=== PATIENT | female | born 1950 | race Caucasian/White ===

== ENCOUNTER 2018-10-02 13:45 | Outpatient (RCR) | payer OTHER, SELFPAY ==
--- NOTE | 2018-09-08 16:00 | PT.OIE ---
Current Diagnoses Complete uterovaginal prolapse (09/08/18) Provider Visit Care Team Role Provider Type Zach Grijalva MD Attending Provider Non-Staff Primary Care Provider Specialty: LAMINATOR PR[employer]ED CIRCUIT [employer]ARDS Address: [address] [place] [address], [place], [address] Email: Physical Therapy Initial Evaluation PT-OP-A Visit Information Start: 09/08/18 13:02 Freq: Status: Active Protocol: Document 09/08/18 14:30 AMB (Rec: 09/08/18 16:04 AMB [email or web address]) Out-Patient Physical Therapy Visit Information Visit Information Visit Type Initial Evaluation Visit Start Time 14:30 Visit Stop Time 15:15 Total Visit Minutes 45 Visit Number 1 Evaluation Information Evaluation Date 09/08/18 PT-OP-B Current Condition Start: 09/08/18 13:02 Freq: Status: Active Protocol: Document 09/08/18 14:30 AMB (Rec: 09/11/18 07:49 AMB [email or web address]) Current Condition History of Current Condition Onset Date June 2018 Current Complaints urinary leaks and prolapse History of Current Condition The patient notes she is wearing pads at night, because she will leak when walking to the bathroom about 2x/night. Denies leaking during the day. June noticed prolapse ( she pushes it back in while in the shower), leaking started around that same time. Does admit to chronic cough, not currently sexually active due to being a . Had one child 47 years ago vaginal delivery with episiotomy without leaking, menopause ended at least 10 years ago. Pt works in the [employer]. Prior Treatments and Tests Discussed treatments with MD. Not interested in pessary. 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 PT-OP-C Subjective Start: 09/08/18 13:02 Freq: Status: Active Protocol: Document 09/08/18 14:30 AMB (Rec: 09/08/18 14:47 AMB [email or web address]) Patient Questionnaires Pelvic Pain and Urgency/Frequency Patient Symptom Scale Pelvic Pain Score 5 PT-OP-I Pelvic Floor Start: 09/08/18 13:02 Freq: Status: Active Protocol: Document 09/08/18 14:30 AMB (Rec: 09/11/18 08:07 AMB [email or web address]) Pelvic Floor Assessment Urine Pelvic Floor Surgery No Urinary Symptoms Prolapse Falling Out Feeling/Heavy Leakage Size Medium Leakage Cause Urge Leaks Per Day 2 Nocturia 2 Urine Pad Type Maxi Pad Bowel Bowel Surgery No Pelvic Clock Pelvic Clock 12-3 Atrophy Pelvic Clock 3-6 Atrophy Pelvic Clock 6-9 Atrophy Pelvic Clock 9-12 Atrophy Prolapse Uterine Prolapse Grade 3 Cystocele Grade 3 Prolapse Comments Present in supine and descends with valsalva Perineal Descent Bearing Present Contraction Ability Manual Muscle Testing Left 0 Manual Muscle Testing Right 0 Manual Muscle Testing Anterior 1 Manual Muscle Testing Posterior 2 PT-OP-Q Treatments Start: 09/08/18 13:02 Freq: Status: Active Protocol: Document 09/08/18 14:30 AMB (Rec: 09/11/18 08:07 AMB [email or web address]) Therapeutic Exercises Supine Exercises 2 Supine Exercise Name long holds Reps/Minutes 10 1 Supine Exercise Name quick flicks Reps/Minutes 10 PT-OP-T Assessment and Plan Start: 09/08/18 13:02 Freq: Status: Active Protocol: Document 09/08/18 14:30 AMB (Rec: 09/11/18 08:14 AMB [email or web address]) Physical Therapy Assessment Rehab Potential Rehabilitation Potential Good Evaluation Complexity Number of Personal Factors/Comorbidities 1-2 Clinical Presentation at Evaluation Stable Impairments Impairments Strength Goals Two Impairment Strength Short Term Goal (STG) Jacqui will be independent with a pelvic floor home exercise program. STG Duration 4 weeks Skull Chopper Goal (LTG) Jacqui will improve her pelvic floor strength to 3/5. LTG Duration 8 weeks One Impairment Continence Short Term Goal (STG) Jacqui will walk to the bathroom without leaking. STG Duration 4 weeks Skull Chopper Goal (LTG) Jacqui will decrease her nocturia to 1x/night. LTG Duration 8 weeks Assessment Summary Assessment The patient presents with both prolapse and urinary incontinence at night. It sounds almost more like urge incontinence, as it is not with sit to stand, but more of walking to the toilet in the night. She was quite weak in her pelvic floor musculature, so she will benefit from strengthening as well as body mechanics training in regards to lifting for her job. Physical Therapy Plan Frequency and Duration Frequency of Treatment 1x/Week Duration of Treatment 8 weeks Plan of Care Start Date 09/08/18 Plan of Care End Date 11/03/18 Therapeutic Interventions Therapeutic Interventions Home Exercise Program Manual Therapy Neuromuscular Re-education Self-Care/Home Management Therapeutic Activities Therapeutic Exercises Modalities Biofeedback Cold Pack/Ice Massage Electric Stimulation Hot Packs Next Visit Focus/Plan Next Note Type Treatment Note Next Visit Plan biofeedback and internal e- stim trial
--- NOTE | 2018-09-11 09:46 | PT.OPPOC ---
Current Diagnoses Complete uterovaginal prolapse (09/08/18) Provider Visit Care Team Role Provider Type Zach Grijalva MD Attending Provider Non-Staff Primary Care Provider Specialty: HELICOPTER TECHNICIAN Address: [address], [place], [address] Email: Plan Of Care PT-OP-T Assessment and Plan Start: 09/08/18 13:02 Freq: Status: Active Protocol: Document 09/08/18 14:30 AMB (Rec: 09/11/18 08:14 AMB [email or web address]) Physical Therapy Assessment Rehab Potential Rehabilitation Potential Good Evaluation Complexity Number of Personal Factors/Comorbidities 1-2 Clinical Presentation at Evaluation Stable Impairments Impairments Strength Goals Two Impairment Strength Short Term Goal (STG) Jacqui will be independent with a pelvic floor home exercise program. STG Duration 4 weeks Truck Sales Manager Goal (LTG) Jacqui will improve her pelvic floor strength to 3/5. LTG Duration 8 weeks One Impairment Continence Short Term Goal (STG) Jacqui will walk to the bathroom without leaking. STG Duration 4 weeks Alf Goal (LTG) Jacqui will decrease her nocturia to 1x/night. LTG Duration 8 weeks Assessment Summary Assessment The patient presents with both prolapse and urinary incontinence at night. It sounds almost more like urge incontinence, as it is not with sit to stand, but more of walking to the toilet in the night. She was quite weak in her pelvic floor musculature, so she will benefit from strengthening as well as body mechanics training in regards to lifting for her job. Physical Therapy Plan Frequency and Duration Frequency of Treatment 1x/Week Duration of Treatment 8 weeks Plan of Care Start Date 09/08/18 Plan of Care End Date 11/03/18 Therapeutic Interventions Therapeutic Interventions Home Exercise Program Manual Therapy Neuromuscular Re-education Self-Care/Home Management Therapeutic Activities Therapeutic Exercises Modalities Biofeedback Cold Pack/Ice Massage Electric Stimulation Hot Packs Next Visit Focus/Plan Next Note Type Treatment Note Next Visit Plan biofeedback and internal e- stim trial Plan of Care Dates Plan of Care Start Date 09/08/18 Plan of Care End Date 11/03/18 Please Sign and Return: I have reviewed this Plan of Care and certify that the skilled therapy services above are required to meet the patient?s needs. Physician Signature Date Printed Name and Credentials Clinical Instructor Signature Printed Name and Credentials
--- NOTE | 2018-09-25 14:49 | PT.OTN ---
Current Diagnoses Complete uterovaginal prolapse (09/25/18) Physical Therapy Treatment Note PT-OP-A Visit Information Start: 09/08/18 13:02 Freq: Status: Active Protocol: Document 09/25/18 13:45 AMB (Rec: 09/25/18 14:49 AMB [email or web address]) Out-Patient Physical Therapy Visit Information Visit Information Visit Type Treatment Note Visit Start Time 13:45 Visit Stop Time 14:30 Total Visit Minutes 45 Visit Number 2 PT-OP-B Current Condition Start: 09/08/18 13:02 Freq: Status: Active Protocol: Document 09/08/18 14:30 AMB (Rec: 09/11/18 07:49 AMB [email or web address]) Current Condition History of Current Condition Onset Date June 2018 Current Complaints urinary leaks and prolapse History of Current Condition The patient notes she is wearing pads at night, because she will leak when walking to the bathroom about 2x/night. Denies leaking during the day. June noticed prolapse ( she pushes it back in while in the shower), leaking started around that same time. Does admit to chronic cough, not currently sexually active due to being a . Had one child 47 years ago vaginal delivery with episiotomy without leaking, menopause ended at least 10 years ago. Pt works in the [employer]. Prior Treatments and Tests Discussed treatments with MD. Not interested in pessary. 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 She has been doing her exercises in standing when she thinks about it. PT-OP-I Pelvic Floor Start: 09/08/18 13:02 Freq: Status: Active Protocol: Document 09/08/18 14:30 AMB (Rec: 09/11/18 08:07 AMB [email or web address]) Pelvic Floor Assessment Urine Pelvic Floor Surgery No Urinary Symptoms Prolapse Falling Out Feeling/Heavy Leakage Size Medium Leakage Cause Urge Leaks Per Day 2 Nocturia 2 Urine Pad Type Maxi Pad Bowel Bowel Surgery No Pelvic Clock Pelvic Clock 12-3 Atrophy Pelvic Clock 3-6 Atrophy Pelvic Clock 6-9 Atrophy Pelvic Clock 9-12 Atrophy Prolapse Uterine Prolapse Grade 3 Cystocele Grade 3 Prolapse Comments Present in supine and descends with valsalva Perineal Descent Bearing Present Contraction Ability Manual Muscle Testing Left 0 Manual Muscle Testing Right 0 Manual Muscle Testing Anterior 1 Manual Muscle Testing Posterior 2 PT-OP-Q Treatments Start: 09/08/18 13:02 Freq: Status: Active Protocol: Document 09/25/18 13:45 AMB (Rec: 09/25/18 14:49 AMB [email or web address]) Therapeutic Exercises Sitting Exercises 2 Sitting Exercise Name sit to stand with pf contract 1 Sitting Exercise Name hip add isometric with pf contract Neuro Re-Education Treatment Other Activities 1 Details pelvic floor contract in hooklying with sEMG Comments Baseline 3.7, avg max 7.8, fatigues after 5 sec hold PT-OP-T Assessment and Plan Start: 09/08/18 13:02 Freq: Status: Active Protocol: Document 09/25/18 13:45 AMB (Rec: 09/25/18 14:49 AMB [email or web address]) Physical Therapy Assessment Assessment Summary Assessment Pt notes difficulty with maintainging contraction with sit to stand. Finds standing doable. Feels more abdominal contraction in supine than in standing. Physical Therapy Plan Next Visit Focus/Plan Next Visit Plan try internal e-stim, progress strengthening as tolerated
--- NOTE | 2018-10-02 16:05 | PT.OTN ---
Current Diagnoses Complete uterovaginal prolapse (10/02/18) Physical Therapy Treatment Note PT-OP-A Visit Information Start: 09/08/18 13:02 Freq: Status: Active Protocol: Document 10/02/18 13:45 AMB (Rec: 10/02/18 16:05 AMB [email or web address]) Out-Patient Physical Therapy Visit Information Visit Information Visit Type Treatment Note Visit Start Time 13:45 Visit Stop Time 14:30 Total Visit Minutes 45 Visit Number 3 PT-OP-B Current Condition Start: 09/08/18 13:02 Freq: Status: Active Protocol: Document 09/08/18 14:30 AMB (Rec: 09/11/18 07:49 AMB [email or web address]) Current Condition History of Current Condition Onset Date June 2018 Current Complaints urinary leaks and prolapse History of Current Condition The patient notes she is wearing pads at night, because she will leak when walking to the bathroom about 2x/night. Denies leaking during the day. June noticed prolapse ( she pushes it back in while in the shower), leaking started around that same time. Does admit to chronic cough, not currently sexually active due to being a . Had one child 47 years ago vaginal delivery with episiotomy without leaking, menopause ended at least 10 years ago. Pt works in the [employer]. Prior Treatments and Tests Discussed treatments with MD. Not interested in pessary. 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 PT-OP-I Pelvic Floor Start: 09/08/18 13:02 Freq: Status: Active Protocol: Document 09/08/18 14:30 AMB (Rec: 09/11/18 08:07 AMB [email or web address]) Pelvic Floor Assessment Urine Pelvic Floor Surgery No Urinary Symptoms Prolapse Falling Out Feeling/Heavy Leakage Size Medium Leakage Cause Urge Leaks Per Day 2 Nocturia 2 Urine Pad Type Maxi Pad Bowel Bowel Surgery No Pelvic Clock Pelvic Clock 12-3 Atrophy Pelvic Clock 3-6 Atrophy Pelvic Clock 6-9 Atrophy Pelvic Clock 9-12 Atrophy Prolapse Uterine Prolapse Grade 3 Cystocele Grade 3 Prolapse Comments Present in supine and descends with valsalva Perineal Descent Bearing Present Contraction Ability Manual Muscle Testing Left 0 Manual Muscle Testing Right 0 Manual Muscle Testing Anterior 1 Manual Muscle Testing Posterior 2 PT-OP-Q Treatments Start: 09/08/18 13:02 Freq: Status: Active Protocol: Document 10/02/18 13:45 AMB (Rec: 10/02/18 16:05 AMB [email or web address]) Therapeutic Exercises Supine Exercises 2 Supine Exercise Name long holds Reps/Minutes 10 1 Supine Exercise Name quick flicks Reps/Minutes 10 Sitting Exercises 3 Sitting Exercise Name hip abd with #3 tband Reps/Minutes 10 2 Sitting Exercise Name sit to stand with pf contract Comments difficult 1 Sitting Exercise Name hip add isometric with pf contract Comments 10 Standing Exercises 1 Standing Exercise Name mini squat Comments with stride stance, wide, hip width stances PT-OP-T Assessment and Plan Start: 09/08/18 13:02 Freq: Status: Active Protocol: Document 10/02/18 13:45 AMB (Rec: 10/02/18 16:05 AMB [email or web address]) Physical Therapy Assessment Assessment Summary Assessment Pt with improved standing coordination, but continues to feel more gluteal usage than pelvic floor with movement. Physical Therapy Plan Next Visit Focus/Plan Next Visit Plan try internal e-stim, progress functional mobility, strengthening as tolerated
--- NOTE | 2018-11-17 08:11 | PT.OPDS ---
Current Diagnoses Complete uterovaginal prolapse (10/02/18) Provider Visit Care Team Role Provider Type Zach Grijalva MD Attending Provider Non-Staff Primary Care Provider Specialty: ADMIN ASSISTANT Address: [facility] [address], [place], [address] Email: Visit Number Visit Number 3 Discharge Summary PT-OP-B Current Condition Start: 09/08/18 13:02 Freq: Status: Active Protocol: Document 09/08/18 14:30 AMB (Rec: 09/11/18 07:49 AMB [email or web address]) Current Condition History of Current Condition Onset Date June 2018 Current Complaints urinary leaks and prolapse History of Current Condition The patient notes she is wearing pads at night, because she will leak when walking to the bathroom about 2x/night. Denies leaking during the day. June noticed prolapse ( she pushes it back in while in the shower), leaking started around that same time. Does admit to chronic cough, not currently sexually active due to being a . Had one child 47 years ago vaginal delivery with episiotomy without leaking, menopause ended at least 10 years ago. Pt works in the [employer]. Prior Treatments and Tests Discussed treatments with MD. Not interested in pessary. 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 PT-OP-I Pelvic Floor Start: 09/08/18 13:02 Freq: Status: Active Protocol: Document 09/08/18 14:30 AMB (Rec: 09/11/18 08:07 AMB [email or web address]) Pelvic Floor Assessment Urine Pelvic Floor Surgery No Urinary Symptoms Prolapse Falling Out Feeling/Heavy Leakage Size Medium Leakage Cause Urge Leaks Per Day 2 Nocturia 2 Urine Pad Type Maxi Pad Bowel Bowel Surgery No Pelvic Clock Pelvic Clock 12-3 Atrophy Pelvic Clock 3-6 Atrophy Pelvic Clock 6-9 Atrophy Pelvic Clock 9-12 Atrophy Prolapse Uterine Prolapse Grade 3 Cystocele Grade 3 Prolapse Comments Present in supine and descends with valsalva Perineal Descent Bearing Present Contraction Ability Manual Muscle Testing Left 0 Manual Muscle Testing Right 0 Manual Muscle Testing Anterior 1 Manual Muscle Testing Posterior 2 PT-OP-T Assessment and Plan Start: 09/08/18 13:02 Freq: Status: Active Protocol: Document 11/17/18 08:09 AMB (Rec: 11/17/18 08:11 AMB [email or web address]) Physical Therapy Assessment Assessment Summary Assessment Jacqui attended 3 visits of physical therapy and then canceled 4 appointments. Had progressed to standing exercises, but did tend to compensate with gluteals when pelvic floor fatigued. Had not noticed improvement in night time incontinence at her last visit. Pt is now discharged due to not being seen in the last 6 weeks.
== END 2018-10-03 12:00 ==
LOC: PHYS 13:45
PROVIDERS: PCP Obstetrics & Gynecology; Visit Provider Obstetrics & Gynecology
DX: N81.3 Complete uterovaginal prolapse (principal)
CPT/HCPCS: 97110; 97112; 97161